=== PATIENT | female | born 1975 ===

== ENCOUNTER 2018-05-19 17:39 | Emergency (ER) | payer SELFPAY ==
[2018-05-19 17:40] VITALS: BMI 44.3
[2018-05-19 18:50] VITALS: RESP 16; TEMP 98.6; O2SAT 98
[2018-05-19] MEDS ORDERED: Alum-Mag Hydrox-Simethicone Susp (30 mL) PO STA (19:46)
--- NOTE | 2018-05-19 19:49 | ED PDOC ---
HPI: Abdomen Time Seen by Provider: 05/19/18 19:11 Chief Complaint (Nursing): Abdominal Pain Chief Complaint (Provider): Epigastric, LUQ pain x 1 day History Per: Patient History/Exam Limitations: no limitations Onset/Duration Of Symptoms: Days Outside of [place] travel?: No Current Symptoms Are (Timing): Still Present Additional Complaint(s): 42 yo female with hypothyroid, high cholesterol and DM presents for evaluation of epigastric pain today. PT states she has also been having right shoulder pain for 4 days and has been taking motrin for the pain. Pt also reports right knee pain today, no similar in the past which began yesterday. No trauma. PT states she also thought she had fever but last motrin was > 8 hours SODDER. Past Medical History Reviewed: Historical Data, Nursing Documentation, Vital Signs Vital Signs: Last Vital Signs Temp 98.6 F 05/19/18 18:45 Pulse 90 05/19/18 18:45 Resp 16 05/19/18 18:45 BP 150/89 05/19/18 18:45 Pulse Ox 98 05/19/18 18:45 - Medical History PMH: Diabetes, HTN, Hypothyroidism Denies: Chronic Kidney Disease - Surgical History Surgical History: No Surg Hx - Family History Family History: States: Unknown Family Hx - Living Arrangements Living Arrangements: With Family - Social History Current smoker - smoking cessation education provided: No - Home Medications Home Medications: Ambulatory Orders Medication Instructions Recorded Levothyroxine Sodium [Unithroid] 150 mcg PO DAILY 05/03/17 Lisinopril [Zestril] 10 mg PO DAILY 05/03/17 oxyCODONE/Acetaminophen [Percocet 1 tab PO Q4 PRN #30 tab 05/03/17 5/325 mg Tab] Albuterol HFA [Ventolin HFA 90 2 puff IH Q4H #1 puff 10/30/17 mcg/actuation (8 g)] levoFLOXacin [Levaquin] 500 mg PO DAILY #10 tab 10/30/17 Albuterol HFA [Ventolin HFA 90 1 - 2 puff IH Q6 PRN #1 inhaler 01/23/18 mcg/actuation (8 g)] Azithromycin [Zithromax] 250 mg PO QAM #1 pkg 01/23/18 - Allergies Allergies/Adverse Reactions: Allergies Allergy/AdvReac Type Severity Reaction Status Date / Time No Known Allergies Allergy Verified 05/19/18 18:45 Review of Systems ROS Statement: Except As Marked, All Systems Reviewed And Found Negative Constitutional: Positive for: Fever (Did not check in ER) Gastrointestinal: Positive for: Abdominal Pain. Negative for: Nausea, Vomiting, Diarrhea Genitourinary Female: Negative for: Dysuria, Frequency Musculoskeletal: Positive for: Shoulder Pain, Leg Pain Physical Exam - Reviewed Nursing Documentation Reviewed: Yes Vital Signs Reviewed: Yes - Physical Exam Appears: Positive for: Well, Non-toxic, No Acute Distress Head Exam: Positive for: ATRAUMATIC, NORMAL INSPECTION, NORMOCEPHALIC Skin: Positive for: Normal Color, Warm, DRY Eye Exam: Positive for: Normal appearance ENT: Positive for: Normal ENT Inspection Neck: Positive for: Normal Cardiovascular/Chest: Positive for: Regular Rate, Rhythm Respiratory: Positive for: Normal Breath Sounds. Negative for: Accessory Muscle Use, Respiratory Distress Gastrointestinal/Abdominal: Positive for: Normal Exam, Soft. Negative for: Tenderness, Guarding, Rebound Back: Positive for: Normal Inspection Extremity: Positive for: Normal ROM Neurologic/Psych: Positive for: Alert, Oriented - ECG O2 Sat by Pulse Oximetry: 98 Pulse Ox Interpretation: Normal Medical Decision Making Medical Decision Making: Endorsed pending labs, XR and re-evaluation. Disposition - Clinical Impression Clinical Impression: Abdominal pain in female - Patient ED Disposition Is Patient to be Admitted: Transfer of Care - Disposition Disposition: Transfer of Care Disposition Time: 20:00 Condition: STABLE Forms: [employer] (Urdu)
[2018-05-19] MEDS ORDERED: Alum-Mag Hydrox-Simethicone Susp (30 mL) ONE (20:01)
--- NOTE | 2018-05-19 20:06 | ED PDOC ---
- Laboratory Results Result Diagrams: 05/19/18 20:40 05/19/18 20:40 - ECG O2 Sat by Pulse Oximetry: 98 - Radiology X-Ray: Interpreted by Me, Viewed By Me - Progress ED Course And Treament: Pt endorsed to me by Yesi Lara PA-C at 20:00. Right shoulder and R knee x-ray - no evidence of fracture CBC, CMP with mildly elevated LFTs, lipase normal Urine dip: negative for leukocyte esterase or nitrate Maalox/Pepcid ordered for epigastric pain but no improvement. Re-evaluated at 11:30pm stating that pain is LLQ. Has had problems with constipation and hard stools recently. Had one small hard BM this morning. Patient discharged with abdominal pain likely from some constipation. Recommended to f/u with PMD for further evaluation and use Colace PRN. Re-evaluation Time: 23:30 Condition: Unchanged (Right shoulder and knee pain mildly improved but abdominal pain unchanged. ) Medical Decision Making Medical Decision Making: Pt endorsed to me by Yesi Lara PA-C at 20:00. Right shoulder and R knee x-ray - no evidence of fracture CBC, CMP with mildly elevated LFTs, lipase normal Urine dip: negative for leukocyte esterase or nitrate Maalox/Pepcid ordered for epigastric pain but no improvement. Re-evaluated at 11:30pm stating that pain is LLQ. Has had problems with constipation and hard stools recently. Had one small hard BM this morning. Patient discharged with abdominal pain likely from some constipation. Recommended to f/u with PMD for further evaluation and use Colace PRN. Disposition Counseled Patient/Family Regarding: Studies Performed, Diagnosis, Need For Followup - Clinical Impression Clinical Impression: Shoulder pain, Knee pain, right, Constipation, Constipation - POA Present On Arrival: None - Disposition Referrals: Anyi Santamaria ARNP [Family Provider] - Disposition: Routine/Home Disposition Time: 00:10 Condition: STABLE Additional Instructions: F/u with Dr. Dowling re: abdominal pain/constipation. Use heating pad and Naproxen for Right shoulder and knee pain. Prescriptions: Docusate Sodium [Colace] 100 mg PO TID PRN 7 Days capsule PRN Reason: Constipation Instructions: Constipation, Adult (DC) Forms: [employer] (Mozambican) Print Language: LITHUANIAN
[2018-05-19 20:38] LABS: SQUAMOUS EPITHIAL 2 /hpf (0-5); URINE BACTERIA RARE (<OCC); URINE BILIRUBIN NEGATIVE (NEGATIVE); URINE BLOOD NEGATIVE (NEGATIVE); URINE CLARITY SLIGHTY-CLOUDY (Clear); URINE COLOR YELLOW (YELLOW); URINE GLUCOSE (UA) NEG (Normal); URINE LEUKOCYTE ESTERASE NEG Leu/uL (Negative); URINE PROTEIN NEGATIVE (NEGATIVE); URINE UROBILINOGEN 0.2-1.0 mg/dL (0.2-1.0)
[2018-05-19 21:05] LABS: BASO # 0.1 K/uL (0.0-0.2); BASO % 0.8 % (0.0-2.0); EOS # 0.2 K/uL (0.0-0.7); EOS % 2.3 % (0.0-4.0); HEMOGLOBIN 12.1 g/dL (12.0-16.0); LYMPH # 3.2 K/uL (1.0-4.3); LYMPH % 43.3 % (20.0-40.0); MEAN CELL VOLUME 86.4 fl (81.0-99.0); MEAN CORPUSCULAR HEMOGLOBIN 28.9 pg (27.0-31.0); MEAN CORPUSCULAR HGB CONC 33.4 g/dL (33.0-37.0); MEAN PLATELET VOLUME 9.5 fl (7.2-11.7); MONO # 0.4 K/uL (0.0-0.8); MONO % 4.7 % (0.0-10.0); NEUT # 3.7 K/uL (1.8-7.0); NEUT % 48.9 % (50.0-75.0); NRBC % 0.1 % (0.0-0.0); RBC 4.18 Mil/uL (3.80-5.20); RED CELL DISTRIBUTION WIDTH 14.1 % (11.5-14.5); WHITE BLOOD COUNT 7.5 K/uL (4.8-10.8)
[2018-05-19 21:14] LABS: ALB/GLOB RATIO 1.1 (1.0-2.1); ALBUMIN 3.9 g/dL (3.5-5.0); ALT/SGPT 95 U/L (9-52); AST/SGOT 86 U/L (14-36); BLOOD UREA NITROGEN 15 mg/dl (7-17); CALCIUM 9.5 mg/dL (8.4-10.2); GFR NON-AFRICAN AMERICAN > 60; LIPASE 220 U/L (23-300)
[2018-05-20 00:19] VITALS: BP 152/90; PULSE 71
--- NOTE | 2018-05-20 09:09 | RAD ---
Date of service: 05/19/2018 PROCEDURE: Radiographs of the Right Shoulder HISTORY: pain, 4 days withotu trauma COMPARISON: No prior. FINDINGS: BONES: No acute fracture or destructive bony lesion identified. JOINTS: Normal. Glenohumeral and acromioclavicular joints preserved. No osteoarthritis. SOFT TISSUES: Normal. OTHER FINDINGS: None. IMPRESSION: Unremarkable radiographs of the right shoulder. If symptoms persist or worsen, consider follow-up right shoulder MRI.
--- NOTE | 2018-05-20 09:09 | RAD ---
Date of service: 05/19/2018 PROCEDURE: Right Knee Radiographs. HISTORY: knee pain, no traum COMPARISON: None. FINDINGS: BONES: No acute fracture or destructive bony lesion identified. JOINTS: Normal. No osteoarthritis. JOINT EFFUSION: None. OTHER FINDINGS: None. IMPRESSION: Unremarkable radiographs of the right knee.
--- NOTE | 2018-05-20 11:17 | CARD ---
APPROVED REPORT Date of service: 05/19/2018 EKG Measurement Heart [id number] <Conclusion> Normal sinus rhythm Minimal voltage criteria for LVH, may be normal variant Nonspecific T wave abnormality Abnormal ECG
== END 2018-05-20 00:18 | disposition home or self-care (01) ==
LOC: H.ER 17:39
DX: K59.00 Constipation, unspecified (principal); M25.511 Pain in right shoulder; M25.561 Pain in right knee; E03.9 Hypothyroidism, unspecified; E11.9 Type 2 diabetes mellitus without complications; I10 Essential (primary) hypertension

== ENCOUNTER 2018-07-03 14:47 | Emergency (ER) | payer SELFPAY ==
[2018-07-03 14:47] VITALS: BMI 44.3
[2018-07-03 14:50] VITALS: O2SAT 98
[2018-07-03] MEDS ORDERED: Sodium Chloride 0.9% 1,000 ML IV STA (15:26)
--- NOTE | 2018-07-03 15:57 | ED PDOC ---
Syncope/Near Syncope/Dizziness Time Seen by Provider: 07/03/18 14:56 Chief Complaint (Nursing): Syncope Chief Complaint (Provider): Syncope History Per: Patient History/Exam Limitations: no limitations Onset/Duration Of Symptoms: Hrs (x1 hour ago) Additional Complaint(s): Ilda Jonas is a 43 year old female with a past medical history of HTN, diabetes and anemia, who presents to the emergency department today with a syncopal episode, onset x1 hour ago. Patient states she was in the kitchen cleaning tomatoes when she felt dizziness, nausea, blurry vision and passed out. She states she thinks she fell but is unsure if she hit her head or not. Patient has mild shoulder pain and headache but currently denies any dizziness, chest pain or nausea. PMD: Sky Dowling Past Medical History Reviewed: Historical Data, Nursing Documentation, Vital Signs Vital Signs: Last Vital Signs Temp 98 F 07/03/18 14:49 Pulse 84 07/03/18 14:49 Resp 20 07/03/18 14:49 BP 144/83 07/03/18 14:49 Pulse Ox 98 07/03/18 14:49 - Medical History PMH: Anemia, Diabetes, HTN, Hypothyroidism Denies: Chronic Kidney Disease - Surgical History Surgical History: Cholecystectomy, - Family History Family History: States: Unknown Family Hx - Home Medications Home Medications: Ambulatory Orders Medication Instructions Recorded Levothyroxine Sodium [Unithroid] 150 mcg PO DAILY 05/03/17 Lisinopril [Zestril] 10 mg PO DAILY 05/03/17 oxyCODONE/Acetaminophen [Percocet 1 tab PO Q4 PRN #30 tab 05/03/17 5/325 mg Tab] Albuterol HFA [Ventolin HFA 90 2 puff IH Q4H #1 puff 10/30/17 mcg/actuation (8 g)] levoFLOXacin [Levaquin] 500 mg PO DAILY #10 tab 10/30/17 Albuterol HFA [Ventolin HFA 90 1 - 2 puff IH Q6 PRN #1 inhaler 01/23/18 mcg/actuation (8 g)] Azithromycin [Zithromax] 250 mg PO QAM #1 pkg 01/23/18 Docusate Sodium [Colace] 100 mg PO TID PRN 7 Days capsule 05/19/18 - Allergies Allergies/Adverse Reactions: Allergies Allergy/AdvReac Type Severity Reaction Status Date / Time No Known Allergies Allergy Verified 05/19/18 18:45 Review of Systems ROS Statement: Except As Marked, All Systems Reviewed And Found Negative Cardiovascular: Negative for: Chest Pain Gastrointestinal: Negative for: Nausea Musculoskeletal: Positive for: Shoulder Pain Neurological: Positive for: Headache. Negative for: Dizziness Physical Exam - Reviewed Nursing Documentation Reviewed: Yes Vital Signs Reviewed: Yes - Physical Exam Appears: Positive for: Non-toxic, No Acute Distress Head Exam: Positive for: ATRAUMATIC, NORMOCEPHALIC Skin: Positive for: Normal Color Eye Exam: Positive for: Normal appearance, EOMI, PERRL ENT: Positive for: Normal ENT Inspection Neck: Positive for: Normal, Painless ROM, Supple Cardiovascular/Chest: Positive for: Regular Rate, Rhythm. Negative for: Murmur Respiratory: Positive for: Normal Breath Sounds. Negative for: Respiratory Distress Gastrointestinal/Abdominal: Positive for: Normal Exam, Soft. Negative for: Tenderness Back: Positive for: Normal Inspection. Negative for: L CVA Tenderness, R CVA Tenderness, Vertebral Tenderness Extremity: Positive for: Normal ROM. Negative for: Pedal Edema, Deformity Neurologic/Psych: Positive for: Alert, Oriented (x3) - Laboratory Results Result Diagrams: 07/03/18 15:54 07/03/18 15:54 - ECG ECG: Positive for: Interpreted By Me, Viewed By Me ECG Rhythm: Positive for: Normal QRS, Normal ST Segment, Sinus Rhythm, Nonspecif ic Changes Interpretation Of Abn EKG: LVH Rate: 81 O2 Sat by Pulse Oximetry: 98 (RA) Pulse Ox Interpretation: Normal - Progress Re-evaluation Time: 18:20 Condition: Re-examined, Improved Medical Decision Making Medical Decision Making: Time: 15:26 Impression: Syncope Differential diagnosis includes but is not limited to cardiac arrhythmia, vasovagal syncope, orthostatic syncope Plan: --CT-head without contrast --Ekg --Alcohol serum --BMP --Drug screen --Troponin I --CBC with differential --D-dimer --Glucose --Sodium chloride 1,000 ml --Shoulder x-ray --Orthostatic BP CT of head FINDINGS: BRAIN No acute intraparenchymal hemorrhage. No mass lesion. No abnormal enhancement. No CT evidence for acute territorial infarct. No midline shift or extra-axial collections. VENTRICLES: No hydrocephalus. ORBITS: The orbits are unremarkable. SINUSES AND MASTOIDS: The paranasal sinuses and mastoid air cells are clear. BONES: No fracture. IMPRESSION: No acute intracranial abnormality. Scribe Attestation: Documented by Bud Ayoub, acting as a scribe for Tomer Dela Cruz MD. Provider Scribe Attestation: All medical record entries made by the Scribe were at my direction and personally dictated by me. I have reviewed the chart and agree that the record accurately reflects my personal performance of the history, physical exam, medical decision making, and the department course for this patient. I have also personally directed, reviewed, and agree with the discharge instructions and disposition. Disposition - Clinical Impression Clinical Impression: Syncope - Patient ED Disposition Is Patient to be Admitted: No Doctor Will See Patient In The: Office Counseled Patient/Family Regarding: Studies Performed, Diagnosis, Need For Followup - Disposition Referrals: [facility] [Outside] Disposition: Routine/Home Disposition Time: 18:21 Condition: GOOD Additional Instructions: ILDA JONAS, thank you for letting us take care of you today. Your provider was Tomer Dela Cruz MD and you were treated for SYNCOPE. The emergency medical care you received today was directed at your acute symptoms. If you were prescribed any medication, please fill it and take as directed. It may take several days for your symptoms to resolve. Return to the Emergency Department if your symptoms worsen, do not improve, or if you have any other problems. Please contact your doctor or call one of the physicians/clinics you have been referred to that are listed on the Patient Visit Information form that is included in your discharge packet. Bring any paperwork you were given at discharge with you along with any medications you are taking to your follow up visit. Our treatment cannot replace ongoing medical care by a primary care provider outside of the emergency department. Thank you for allowing the [facility] team to be part of your care today. If you had an X-Ray or CT scan: A Radiologist will review the ED reading if any change in treatment is needed we will contact you. If you had a blood, urine, or wound culture: It will take several days for the results, if any change in treatment is needed we will contact you. If you had an STI test: It will take 48 hours for the results. Please call after 1 week if you have not heard back. Instructions: Syncope (Fainting) Print Language: BAHAMIAN Wells Criteria for PE - Wells Criteria for Pulmonary Embolism Clinical Signs and Symptoms of DVT: No P.E is #1 Diagnosis, or Equally Likely: No Heart Rate >100: No Immobilization at least 3 days;Surgery previous 4 weeks: No Previous, objectively diagnosed PE or DVT: No Hemoptysis: No Malignancy w/treatment within 6 months, or palliative: No Total Score: 0
[2018-07-03 16:20] LABS: BLOOD UREA NITROGEN 11 mg/dl (7-17); CALCIUM 9.1 mg/dL (8.4-10.2); GFR NON-AFRICAN AMERICAN > 60
[2018-07-03 16:27] LABS: BASO % 0.6 % (0.0-2.0); EOS # 0.1 K/uL (0.0-0.7); EOS % 1.8 % (0.0-4.0); HEMOGLOBIN 12.5 g/dL (12.0-16.0); LYMPH # 2.6 K/uL (1.0-4.3); LYMPH % 33.5 % (20.0-40.0); MEAN CELL VOLUME 91.8 fl (81.0-99.0); MEAN CORPUSCULAR HEMOGLOBIN 29.2 pg (27.0-31.0); MEAN CORPUSCULAR HGB CONC 31.8 g/dL (33.0-37.0); MEAN PLATELET VOLUME 9.5 fl (7.2-11.7); MONO # 0.4 K/uL (0.0-0.8); MONO % 5.3 % (0.0-10.0); NEUT # 4.6 K/uL (1.8-7.0); NEUT % 58.8 % (50.0-75.0); NRBC % 0.1 % (0.0-0.0); RBC 4.27 Mil/uL (3.80-5.20); RED CELL DISTRIBUTION WIDTH 13.9 % (11.5-14.5); WHITE BLOOD COUNT 7.8 K/uL (4.8-10.8)
[2018-07-03 16:33] LABS: BARBITURATES, UR NEGATIVE (NEGATIVE); BENZODIAZEPINES, UR NEGATIVE (NEGATIVE); OPIATES, UR NEGATIVE (NEGATIVE); PHENCYCLIDINE, UR NEGATIVE (NEGATIVE)
[2018-07-03 18:36] VITALS: BP 127/72; PULSE 78; RESP 18; TEMP 98.2
--- NOTE | 2018-07-04 09:00 | CT ---
Date of service: 07/03/2018 PROCEDURE: CT HEAD WITHOUT CONTRAST. HISTORY: syncope COMPARISON: None available. TECHNIQUE: Axial computed tomography images were obtained through the head/brain without intravenous contrast. Radiation dose: Total exam DLP = 868.37 mGy-cm. This CT exam was performed using one or more of the following dose reduction techniques: Automated exposure control, adjustment of the mA and/or kV according to patient size, and/or use of iterative reconstruction technique. FINDINGS: HEMORRHAGE: No intracranial hemorrhage. BRAIN: Ceron-white matter differentiation is preserved. There is no mass, mass effect or abnormal extra-axial fluid collection. There is no territorial infarction. The midline sagittal structures are normal. VENTRICLES: The ventricles are normal in size, shape and configuration. CALVARIUM: There is no calvarial fracture or extracranial soft tissue swelling. PARANASAL SINUSES: Predominantly clear. MASTOID AIR CELLS: Predominantly clear. OTHER FINDINGS: None. IMPRESSION: No acute intracranial abnormality. A preliminary report was provided by [employer].
--- NOTE | 2018-07-04 09:15 | RAD ---
Date of service: 07/03/2018 PROCEDURE: Radiographs of the Right Shoulder HISTORY: shoulder pain injury COMPARISON: No prior. FINDINGS: BONES: Normal. No fracture. JOINTS: Normal. Glenohumeral and acromioclavicular joints preserved. No osteoarthritis. SOFT TISSUES: Normal. OTHER FINDINGS: None. IMPRESSION: Normal radiographs of the right shoulder.
--- NOTE | 2018-07-04 11:34 | CARD ---
APPROVED REPORT Date of service: 07/03/2018 EKG Measurement Heart [id number] <Conclusion> Normal sinus rhythm Left ventricular hypertrophy Nonspecific ST and T wave abnormality Abnormal ECG
== END 2018-07-03 18:42 | disposition home or self-care (01) ==
LOC: H.ER 14:47
DX: R55 Syncope and collapse (principal); D64.9 Anemia, unspecified; E03.9 Hypothyroidism, unspecified; E11.9 Type 2 diabetes mellitus without complications; I10 Essential (primary) hypertension
CPT/HCPCS: 70450; 73030; 80048; 80320; 80324; 80345; 80346; 80349; 80353; 80358; 80361; 81025; 82948; 83992; 84484; 85025; 93005; 96360; 99285; J7030